=== PATIENT | female | born 1955 | race African-American/Black ===

== ENCOUNTER 2023-12-23 07:28 | Emergency (ER) | payer MEDICARE, SELFPAY ==
--- NOTE | ~2023-12-23 | XR_ITS ---
EXAMINATION: XR CHEST CLINICAL INFORMATION: Cough COMPARISON: None available. TECHNIQUE: 2 views of the chest were obtained. FINDINGS: The cardiac silhouette is normal. There is mild diffuse bronchial wall thickening. There are no areas of consolidation. There are no pleural effusions or pneumothoraces. The bones and soft tissues are unremarkable for the patient's age. XR/XR chest 2V IMPRESSION: Bronchial wall thickening may be infectious and/or inflammatory in etiology. Electronically signed by: Kizzy Sanderson MD 12/23/2023 08:52 AM [facility]
[2023-12-23 07:31] VITALS: BP 168/99; PULSE 57; RESP 20; TEMP 36.4; O2SAT 98; BMI 36.1
--- NOTE | 2023-12-23 07:59 | ED.URI ---
HPI - URI/Sore Throat General Chief Complaint: Upper Respiratory Symptoms Stated Complaint: ?sinus infection Time Seen by Provider: 12/23/23 07:57 Source: patient Mode of arrival: ambulatory Limitations: no limitations History of Present Illness ED Provider: LOU SHELTON Narrative: 68 yo female with PMH of HTN who notes she was treated for shingles about a week ago and healing. No prednisone use. She does have hx of bronchitis/pneumonia. She notes 3 days of cough, fevers, chills and yellow sputum production. No recent travel or abx use. Patient has had pneumonia in the past and feels the same. Notes increase chest tightness with coughing as well. MD elicited complaint: cough Onset (ago): day(s) (3) Consistency: constant Description of mucous: yellow Able to tolerate fluids by mouth: Yes Exacerbating factors: other (coughing) Relieving factors: nothing Associated symptoms: fever (101), chills, cough and shortness of breath Treatments prior to arrival: none Related Data Previous Rx's ?Medication ?Instructions ?Recorded cefuroxime axetil 500 mg tablet 500 mg PO BID 7 days #14 tabs 12/23/23 doxycycline hyclate 100 mg capsule 100 mg PO BID 7 days #14 caps 12/23/23 Allergies Allergy/AdvReac Type Severity Reaction Status Date / Time amoxicillin [Augmentin] Allergy Unknown Unknown Verified 12/23/23 07:34 clavulanic acid [Augmentin] Allergy Unknown Unknown Verified 12/23/23 07:34 lisinopril Allergy Unknown Unknown Verified 12/23/23 07:34 losartan Allergy Unknown Unknown Verified 12/23/23 07:34 moxifloxacin [Avelox] Allergy Unknown Unknown Verified 12/23/23 07:34 penicillin G Allergy Unknown Unknown Verified 12/23/23 07:34 Review of Systems Review of Systems: Constitutional : pos Fever, pos Chills ENT/Mouth : No Hoarseness, No sore throat, No Rhinorrhea Eyes: No Redness, No Discharge, No Vision Changes Cardiovascular : No Chest Pain, positive SOB, positive Dyspnea on Exertion, No Edema Respiratory : positive Cough, No Sputum, no Wheezing, Gastrointestinal : No Nausea, No Vomiting, No Diarrhea, No abdominal Pain Genitourinary : No Dysuria, No Hematuria Musculoskeletal : No joint pain, No Myalgias Skin : No rash Neuro : No Weakness, No Numbness, No Headache Psych : No anxiety, depression All other systems reviewed and are negative [facility] Past Medical History Attestation statement: The following information was validated with the patient. Source: old records reviewed Medical History HTN (hypertension) Social History Social History (Updated 12/23/23 @ 08:43 by Miriam Mireles DO) Patient Tobacco Use Status: Never used Tobacco Advance Directives: No Advance Directives Information Provided: Yes Physical Exam Vital Signs: Vital Signs: Last Vital Signs Temp 97.6 F 12/23/23 07:31 Pulse 57 12/23/23 07:31 Resp 20 12/23/23 07:31 BP 168/99 H 12/23/23 07:31 Pulse Ox 98 12/23/23 07:31 O2 Del Method Room Air 12/23/23 07:31 BMI result Body Mass Index 36.1 Appearance: Alert. Oriented X3. No acute distress. Eyes: Pupils equal, round and reactive to light. ENT: Pharynx normal. Neck: Normal inspection. Neck supple. CVS: Normal heart rate and rhythm. Pulses normal. Respiratory: No respiratory distress. Breath sounds right lower lobe rales noted. Abdomen: Soft and nontender. Skin: Skin warm and dry. Normal skin color. Normal skin turgor. Extremities: No lower extremity edema. No calf ttp Neuro: Oriented X 3. No motor deficit. No sensory deficit. Medications Administered Discontinued Medications Generic Name Dose Route Start Last Admin Trade Name Freq PRN Reason Stop Dose Admin Cefuroxime Axetil 500 mg 12/23/23 08:36 12/23/23 08:43 Cefuroxime Axetil 500 Mg Tablet PO 12/23/23 08:37 500 mg ONCE ONE Administration Doxycycline Monohydrate 100 mg 12/23/23 08:36 12/23/23 08:43 Doxycycline Monohydrate 100 Mg Capsule PO 12/23/23 08:37 100 mg ONCE ONE Administration Medical Decision Making Medical Decision Making MDM Narrative: 68 yo female with PMH of HTN here with c/o URI symptoms, cough, fevers and sputum production at this time will need viral panel and CXR for pneumonia - suspect pneumonia has no opacity and is not hypoxic. Plan to start on ceftin and doxy. Differential Diagnosis Differential Diagnoses: The differential diagnosis associated with the presentation includes bronchitis/pneumonia viral syndrome Admission/Observation Consideration of admission/observation: Escalation of care including admission/observation considered tolerating PO not toxic trial dose of ceftin Lab Data MDM Lab Attestation statement: I reviewed the patient's lab results. Labs: Lab Results 12/23/23 Range/Units 08:00 Influenza Type A (PCR) NEGATIVE (Negative) Influenza Type B (PCR) NEGATIVE (Negative) RSV RNA Qual (PCR) NEGATIVE (Negative) SARS-CoV-2 RNA (RT-PCR) NEGATIVE (Negative) Independent Interpretation I performed an independent interpretation of an: Plain X-Ray (right middle lobe opacity, RUL small opacity) Radiology Impression Discussion of test interpretation with radiology: I have reviewed the radiologist's reading. Prescription Management I considered prescription management with: Antibiotic Discharge Plan Discharge Clinical Impression: Pneumonia Qualifiers: Pneumonia type: due to unspecified organism Laterality: right Lung location: unspecified part of lung Qualified Code(s): J18.9 - Pneumonia, unspecified organism Patient Disposition: Home, Self-Care Instructions: Community Acquired Pneumonia (ED) Additional Instructions: return for any worsening symptoms or concerns such as you are very short of breath and you cannot walk to your own bathroom please monitor your symptoms closely On doxycycline, do not take pills immediately before going to bed and swallow pills with plenty of water. Avoid direct sunlight, iron, antacids, and Pepto Bismol. Call your provider if you develop new ringing in your ears, new problems hearing, dizziness, difficulty swallowing, rash, abdominal discomfort, nausea, or diarrhea.? On a cephalosporin?antibiotic, softer bowel movements are to be expected. Call your provider if you move your bowels more than 4 times a day, your bowel movements are almost all liquid, or you get a rash.?? Prescriptions: New doxycycline hyclate 100 mg capsule 100 mg PO BID 7 Days Qty: 14 0RF cefuroxime axetil 500 mg tablet 500 mg PO BID 7 Days Qty: 14 0RF Print Language: Upper Sorbian
[2023-12-23] MEDS: cefuroxime axetiL 500 MG TABLET PO (08:43)
[2023-12-23] MEDS: Doxycycline Monohydrate 100 MG CAPSULE PO (08:43)
[2023-12-23 08:53] LABS: Influenza A PCR NEGATIVE (Negative); Influenza B PCR NEGATIVE (Negative); Resp Syncy Virus RNA Qual PCR NEGATIVE (Negative); SARS COV2 PCR INHOUSE NEGATIVE (Negative)
[2023-12-23 09:10] VITALS: BP 138/82; PULSE 62; RESP 16; TEMP 36.5; O2SAT 99
== END 2023-12-23 09:11 | disposition home or self-care (01) ==
PROVIDERS: Emergency Provider Emergency Medicine; PCP Family Medicine
DX: J18.9 Pneumonia, unspecified organism (principal); R05.9 Cough, unspecified; R06.02 Shortness of breath; Z03.818 Encounter for observation for suspected exposure to other biological agents ruled out
CPT/HCPCS: 0241U; 71046; 99282; 99283

== ENCOUNTER 2024-01-16 11:42 | Emergency (ER) | payer MEDICARE, SELFPAY ==
--- NOTE | ~2024-01-16 | XR_ITS ---
EXAMINATION: XR CHEST CLINICAL INFORMATION: cough COMPARISON: Chest radiograph 12/23/2023. TECHNIQUE: 2 views of the chest were obtained. FINDINGS: The lungs are adequately expanded. No focal consolidation. Again noted mild bronchial wall thickening. No pleural effusions or pneumothorax. The cardiac mediastinal silhouette is within normal limits. No acute osseous abnormality. Degenerative changes of the visualized spine. XR/XR chest 2V IMPRESSION: No focal consolidation. Again noted mild bronchial wall thickening which can be seen with reactive airways disease. Electronically signed by: Hipolito Trujillo MD 01/16/2024 12:28 PM [facility]
--- NOTE | 2024-01-16 11:45 | ED.GENADULT ---
HPI - General Adult General Chief complaint: Upper Respiratory Symptoms Stated complaint: Cough, SOB Time Seen by Provider: 01/16/24 15:00 Source: patient Mode of arrival: ambulatory Limitations: no limitations History of Present Illness ED Provider: Eron Montesinos PA-C HPI narrative: 68-year-old female recently treated with pneumonia December for history of asthma bronchitis presents to the ED for past 3 4 days of coughing, body aches, chills, coughing up green phlegm, and green nasal discharge with sinus pain and headache. Related Data Previous Rx's ?Medication ?Instructions ?Recorded cefuroxime axetil 500 mg tablet 500 mg PO BID 7 days #14 tabs 12/23/23 doxycycline hyclate 100 mg capsule 100 mg PO BID 7 days #14 caps 12/23/23 cefpodoxime 200 mg tablet 200 mg PO Q12H 7 days #14 tabs 01/16/24 prednisone 20 mg tablet 40 mg (2 x 20 mg) PO DAILY 5 days 01/16/24 #10 tabs Allergies Allergy/AdvReac Type Severity Reaction Status Date / Time amoxicillin [Augmentin] Allergy Unknown Unknown Verified 01/16/24 11:47 clavulanic acid [Augmentin] Allergy Unknown Unknown Verified 01/16/24 11:47 lisinopril Allergy Unknown Unknown Verified 01/16/24 11:47 losartan Allergy Unknown Unknown Verified 01/16/24 11:47 moxifloxacin [Avelox] Allergy Unknown Unknown Verified 01/16/24 11:47 penicillin G Allergy Unknown Unknown Verified 01/16/24 11:47 Review of Systems Review of Systems: Coughing up green phlegm, sinus pain, nasal green discharge, chills Yes all other systems are reviewed and are negative PMF Past Medical History Medical History HTN (hypertension) Social History Social History (Updated 12/23/23 @ 08:43 by Miriam Mireles DO) Patient Tobacco Use Status: Never used Tobacco Advance Directives: No Advance Directives Information Provided: Yes Physical Exam ED Vital Signs: Vital Signs - 24 hr 01/16/24 11:46 01/16/24 14:33 01/16/24 15:51 Temperature 96.8 F 97.7 F 97.7 F Pulse Rate 66 64 64 Respiratory Rate 20 15 15 Blood Pressure 135/83 152/87 H 152/87 H Pulse Oximetry 96 98 98 Oxygen Delivery Method Room Air Room Air Room Air BMI result Body Mass Index 36.1 Const General: cooperative, healthy appearing, comfortable, no acute distress, well developed, alert, awake and Physically active Orientation/consciousness: patient oriented x3 [facility] Head: Yes normal to inspection, Yes No palpable skull fracture present, Yes normocephalic and Yes atraumatic Ears: hearing grossly normal bilaterally, external ears normal, TM's normal bilaterally, TM normal on the right, TM normal on the left, EAC's normal, mastoids normal and no periauricular adenopathy Face and sinus: Yes normal facial exam and Yes sinus tenderness (maxillary bilateral tenderness) Throat: Yes posterior oropharynx normal, Yes tonsils normal and Yes uvula midline Eyes General: appearance normal, both eyes and all related structures Neck Neck: Yes normal visual inspection, Yes full ROM, Yes no lymphadenopathy, Yes no meningeal signs, Yes trachea midline, Yes supple, No anterior neck swelling and No tender Chest Chest palpation & inspection: normal inspection of the chest and normal palpation of entire chest wall Resp Effort & Inspection: normal respiratory effort and able to speak in complete sentences Auscultation: clear to auscultation bilaterally Cardio Jugular venous distension: no JVD Heart sounds: S1 normal heart sound present and S2 normal heart sound present GI Inspection: Yes normal to inspection Palpation (GI): Soft to palpation, not firm, nontender, no guarding and not rigid General: Yes no CVA tenderness Back/Spine/Pelvis Back: no CVA tenderness and No back tenderness Skin General skin exam: no rashes or lesions noted, elasticity normal and turgor normal Neuro General: patient oriented x3, gait normal, tone normal, moves all extremities, Normal light touch and pain sensation, no meningeal signs, no focal motor deficits, CN's II-XI intact bilaterally and normal sensation to monofilament Extrem General: Yes normal to inspection, Yes full ROM and Yes capillary refill normal Psych Appearance: grossly normal, well kempt and not disheveled Course Course Course Narrative: RME performed by Nohemi Park PA-C. Patient is a 68 year old assigned female at presenting to the emergency department with a cough. Patient states that she was treated on 12/23/2023 for pneumonia but her cough persists and she continues to cough things up, including green sputum. Detailed physical exam and review of systems are deferred to the developmental mathematics professor. Imaging and swabs ordered. Patient placed back in the waiting room pending room availability and results. Medical Decision Making Medical Decision Making [facility] Narrative: 68-year-old female presents to ED for URI symptoms. Physical exam indicates for sinusitis bronchitis. Chest x-ray negative for pneumonia. SARs COVID influenza RSV negative. Patient will be discharged with a cephalosporin n and informed to follow up with primary care provider. Patient also requested steroids for her lungs which usually helps. Patient has albuterol inhaler at home. Patient explained worrisome signs and informed to return to the ED immediately. Not suspecting PE, pericarditis, myocarditis, CHF, carbon out tamponade, myocardial infarction, or any other life-threatening etiologies. Differential Diagnosis Differential Diagnoses: The differential diagnosis associated with the presentation includes (Sinusitis, COVID, RSV, influenza, pneumonia) Admission/Observation Consideration of admission/observation: Escalation of care including admission/observation considered Lab Data [facility] Lab Attestation statement: I reviewed the patient's lab results. Labs: Lab Results 01/16/24 Range/Units 11:54 Influenza Type A (PCR) NEGATIVE (Negative) Influenza Type B (PCR) NEGATIVE (Negative) RSV RNA Qual (PCR) NEGATIVE (Negative) SARS-CoV-2 RNA (RT-PCR) NEGATIVE (Negative) Independent Interpretation I performed an independent interpretation of an: Plain X-Ray Radiology Impression Discussion of test interpretation with radiology: I have reviewed the radiologist's reading. Independent Historian Clinical information obtained from an independent historian. History obtained from or confirmed by: Other (patient) External Record Review External record reviewed: Other (prior visits) Prescription Management I considered prescription management with: Antibiotic Discharge Plan Discharge Clinical Impression: Sinusitis, Bronchitis Patient Disposition: Home, Self-Care Instructions: Sinusitis (ED), Acute Bronchitis (ED) Additional Instructions: Chest x-ray came back negative for pneumonia. RSV, influenza, and COVID came back negative. You will being treated for sinusitis and bronchitis. Due to allergy to penicillins you will be discharged with a cephalosporin. You also discharged with prednisone that will help with your breathing. Continue using albuterol inhalers you have at home. Return to the ED immediately for any chest pain, shortness of breath, coughing up blood, worsening maxillary sinus pain, Worsening headache, dizziness, or any other concerning symptoms. Prescriptions: New cefpodoxime 200 mg tablet 200 mg PO Q12H 7 Days Qty: 14 0RF Rx Instructions: must administer with a meal/food prednisone 20 mg tablet 40 mg PO DAILY 5 Days Qty: 10 0RF No Action doxycycline hyclate 100 mg capsule 100 mg PO BID 7 Days Qty: 14 0RF cefuroxime axetil 500 mg tablet 500 mg PO BID 7 Days Qty: 14 0RF Stand Alone Forms: Work/School Release Interventions: ED Discharge Assessment Last Done: 01/16/24 15:51 Discharge Date/Time: 01/16/24 15:51 Print Language: Divehi
[2024-01-16 11:46] VITALS: BP 135/83; PULSE 66; RESP 20; TEMP 36; O2SAT 96; BMI 36.1
[2024-01-16 12:36] LABS: Influenza A PCR NEGATIVE (Negative); Influenza B PCR NEGATIVE (Negative); Resp Syncy Virus RNA Qual PCR NEGATIVE (Negative); SARS COV2 PCR INHOUSE NEGATIVE (Negative)
[2024-01-16 14:33] VITALS: BP 152/87; PULSE 64; RESP 15; TEMP 36.5; O2SAT 98
[2024-01-16 15:51] VITALS: BP 152/87; PULSE 64; RESP 15; TEMP 36.5; O2SAT 98
== END 2024-01-16 15:51 | disposition home or self-care (01) ==
PROVIDERS: Physician Assistant Medical; Emergency Provider Emergency Medicine; PCP Family Medicine
DX: J32.8 Other chronic sinusitis (principal); J40 Bronchitis, not specified as acute or chronic; R05.9 Cough, unspecified; R06.02 Shortness of breath; M79.10 Myalgia, unspecified site; R51.9 Headache, unspecified; Z03.818 Encounter for observation for suspected exposure to other biological agents ruled out
CPT/HCPCS: 0241U; 71046; 99283

== ENCOUNTER 2024-09-02 10:53 | Emergency (ER) | payer MEDICARE, SELFPAY ==
--- NOTE | ~2024-09-02 | CT_ITS ---
CLINICAL HISTORY: suprapubic LLQ pain CT abdomen and pelvis with IV contrast Comparison: None Findings: Lung bases show no active disease. No dependent layering pleural effusions. The heart is not enlarged. Coronary artery calcifications: None. Liver normal size and contour. No focal hepatic lesions. Patent hepatic and portal veins. Physiologic distention of the gallbladder with no radiopaque gallstones. Homogeneous enhancement of the pancreas. No splenomegaly. Normal adrenal glands. Symmetrical renal excretion with no segmental or diffuse renal parenchymal disease or evidence of obstructive uropathy/hydroureteronephrosis. Probable 5 mm renal cortical cysts on the left subcentimeter on the right can be confirmed with ultrasound. Normal caliber abdominal aorta. Bowel demonstrates a nonobstructive pattern. No free air. Heavy stool burden throughout. Normal appendix. Nonspecific ileitis terminal ileum. Diverticulosis coli without CT evidence of acute diverticulitis. No intraperitoneal, retroperitoneal, pelvic or inguinal masses lymphadenopathy or abnormal fluid collections. Normal distention of the urinary bladder. Probable mild cystitis correlate clinically. Post hysterectomy. No vertebral body compression fractures or spondylolisthesis. No bony destructive lesions. Impression: 1. Mild cystitis without evidence of pyonephrosis or pyelonephritis. Small probable renal cortical cysts bilaterally can be correlated with ultrasound. 2. Heavy stool burden. Normal appendix. Nonspecific ileitis terminal ileum. 3. Hepatic steatosis. No radiopaque gallstones. This document has been electronically signed by: José Eagle MD on 09/02/2024 17:41:54
[2024-09-02 10:58] VITALS: BP 139/86; PULSE 67; RESP 16; TEMP 36.6; O2SAT 94; BMI 35.1
--- NOTE | 2024-09-02 11:01 | ED_ITS ---
HPI - General Adult General Chief complaint: Urogenital-Female Stated complaint: quest kidney infection Time Seen by Provider: 09/02/24 12:08 Source: patient Mode of arrival: ambulatory Limitations: no limitations History of Present Illness ED Provider: [facility] narrative: This is a 68-year-old woman presenting to emergency department for the 2nd time with recurrent pressure in the suprapubic area, she states she was properly treated for UTI and yeast infection, she has had no dysuria, she has had no vaginal bleeding or discharge, no hematuria. She has this intermittent pressure in the suprapubic area and worse when she urinates in the does radiate into her flanks. No rashes in the area, no fevers or chills reported. Related Data Previous Rx's ?Medication ?Instructions ?Recorded cefuroxime axetil 500 mg tablet 500 mg PO BID 7 days # 14 tabs 12/23/23 doxycycline hyclate 100 mg capsule 100 mg PO BID 7 day s #14 caps 12/23/23 cefpodoxime 200 mg tablet 200 mg PO Q12H 7 days #14 ta bs 01/16/24 prednisone 20 mg tablet 40 mg (2 x 20 mg) PO DAILY 5 days 01/16/24 #10 tabs cephalexin 500 mg capsule 500 mg PO BID 7 days #14 cap s 09/02/24 Allergies Allergy/AdvReac Type Severity Reaction Status Date / Time amoxicillin (Augmentin) Allergy Unknown Unknown Verified 09/02/24 11:00 clavulanic acid (Augmentin) Allergy Unknown Unknown Verified 09/02/24 11:00 lisinopril Allergy Unknown Unknown Verified 09/02/24 11:00 losartan Allergy Unknown Unknown Verified 09/02/24 11:00 moxifloxacin (Avelox) Allergy Unknown Unknown Verified 09/02/24 11:00 penicillin G Allergy Unknown Unknown Verified 09/02/24 11:00 Review of Systems 2 Constitutional: Constitutional: Reports as per [facility] Past Medical History Medical History HTN (hypertension) Social History Social History (Updated 12/23/23 @ 08:43 by Miriam Mireles DO) Patient Tobacco Use Status: Never used Tobacco Smoked in Last 30 Days: No Use of substances other than those prescribed or required for medical reasons: No Advance Directives: No Advance Directives Information Provided: Yes Physical Exam ED Vital Signs: Vital Signs - 24 hr 09/02/24 10:58 09/02/24 14:24 Temperature 97.9 F 97.5 F Pulse Rate 67 51 Respiratory Rate 16 19 Blood Pressure 139/86 135/81 Pulse Oximetry 94 99 Oxygen Delivery Method Room Air Room Air BMI result Body Mass Index 35.1 Const Other: * Gen: ?Overall well-appearing patient * HEENT: PERRLA, EOMI, MMM, * Neck: Supple, no LAD * CV: RRR, no obvious murmurs appreciated * Resp: ?No wheezing rales rhonchi no stridor moving air well * Abd: ?Bowel sounds are present, suprapubic and left lower quadrant tenderness no rebound or rigidity, no CVA tenderness, exam deferred * MSK: FROM, strength 5/5 all extremities * Skin: Warm, dry, intact, no rashes noted * Neuro: ?Alert and oriented x3, moving upper and lower extremities symmetrically, no obvious facial asymmetry noted Course Course Course Narrative: RME, this is a rapid medical exam performed by Magdaleno Killian please refer to primary provider for complete H&P- 68 year old female presents for evaluation of lower abdominal/pelvic pain. She was reently treated for a UTI with Macrobid. Plan for labs and a UA Medications Administered Discontinued Medications Generic Name Dose Route Start Last Admin Trade Name Freq PRN Reason Stop Dose Admin Iohexol 100 ml 09/02/24 16:11 09/02/24 16:11 Iohexol 350 Mg/Ml 100 Ml Infus..Btl IV 09/02/24 16:12 85 ml ONCE ONE Administration Ketorolac Tromethamine 15 mg 09/02/24 14:53 09/02/24 15:57 Ketorolac Tromethamine 15 Mg/Ml Vial IVPUSH 09/02/24 14:54 15 mg ONCE ONE Administration Medical Decision Making Medical Decision Making MDM Narrative: Considerations for workup as below, we will obtain imaging, depending on what the imaging shows we will augment further treatment. Differential Diagnosis Differential Diagnoses: The differential diagnosis associated with the presentation includes Diverticulitis, appendicitis, renal colic, pyelonephritis, UTI, AAA Admission/Observation 2022 Emergency Medicine Coding Guide from [employer] on 09/02/2024 All calculations should be rechecked by clinician prior to use RESULT SUMMARY: 4 Estimated Level of Service Problems: Moderate (4) Risk: Moderate (4) Data: Limited (3) NARRATIVE MDM: This patient's problem complexity is Moderate as patient: has an acute illness with systemic symptoms. This patient's risk is Moderate due to: overall presentation requiring evaluation for a potentially Moderate-risk process. This patient's data complexity is Limited due to: -multiple tests ordered INPUTS: Number and Complexity ?> 6 = 4: acute illness w/systemic sx (f) Risk level ?> 3 = Moderate Tests ordered ?> 2 = 2 Tests results reviewed (excluding labs) ?> 0 = 0 Prior external notes reviewed ?> 0 = 0 Assessment requiring and independent historian ?> 0 = No Independent interpretation of tests ?> 0 = No Discussed management/test interpretation w/external professional ?> 0 = No Lab Data [facility] Lab Attestation statement: I reviewed the patient's lab results. 09/02/24 11:13 09/02/24 11:13 Labs: Lab Results 09/02/24 Range/Units 11:13 WBC 3.5 L (4.8-10.8) X10*3/uL RBC 4.33 (4.20-5.50) X10*6/uL Hgb 13.2 (12.0-16.0) g/dl Hct 37.6 (37.0-47.0) % MCV 86.8 (80.0-98.0) fL MCH 30.5 (27.0-33.0) pg MCHC 35.1 H (31.0-35.0) g/dl RDW 13.9 (11.0-16.0) % Plt Count 243 (160-400) X10*3/uL MPV 10.6 (9.4-12.3) fL Immature Gran % (Auto) 0.3 (0.0-0.4) % Neut % (Auto) 48.7 (45-73) % Lymph % (Auto) 40.2 H (20-40) % Edgar % (Auto) 8.8 (2-11) % Eos % (Auto) 1.4 (0-4) % Baso % (Auto) 0.6 (0-2) % Lymph # (Auto) 1.4 (1.2-4.9) X10*3/uL Edgar # (Auto) 0.3 (0.1-1.2) X10*3/uL Eos # (Auto) 0.1 (0.0-0.4) X10*3/uL Baso # (Auto) 0.0 (0.0-0.2) X10*3/uL Abs Immat Gran (auto) 0.01 (0.00-0.03) X10*3/uL Absolute Neuts (auto) 1.7 L (2.0-8.3) x10*3/uL Absolute Nucleated RBC 0.000 (0.0-0.012) X10*3/uL Nucleated RBC % (auto) 0.0 (0.0-0.2) /100WBC Sodium 141 (135-145) mmol/L Potassium 3.5 (3.3-5.1) mmol/L Chloride 109 H (96-108) mmol/L Carbon Dioxide 25 (22-29) mmol/L Anion Gap 11 L (12-20) BUN 16 (9-16) mg/dL Creatinine 0.70 (0.5-1.4) mg/dL Estim Creat Clear Calc 88.0 Estimated GFR > 60 Random Glucose 95 (60-115) mg/dL Calcium 8.8 (8.4-10.2) mg/dL Total Bilirubin 0.5 (0.0-1.0) mg/dL AST 16 (5-31) U/L ALT 14 (0-31) U/L Alkaline Phosphatase 85 (39-117) U/L Total Protein 6.9 (6.5-8.0) g/dL Albumin 3.9 (3.5-5.0) g/dL Urine Color Yellow Urine Appearance Cloudy Urine pH 8.0 (5.0-9.0) Ur Specific [place] 1.020 (1.005-1.025) Urine Protein Trace (Neg-Trace) mg/dL Urine Glucose (UA) Negative (Negative) mg/dL Urine Ketones Negative (Negative) mg/dL Urine Blood Negative (Negative) Urine Nitrite Negative (Negative) Ur Leukocyte Esterase Small (1+) H (Negative) Urine RBC 0-2 (0-2) /HPF Urine WBC 6-10 H (0-5) /HPF Ur Squamous Epith Cells >20 (0-2) /HPF Urine Bacteria 4+ (None Seen) Hyaline Casts 0-2 (0-2) /LPF Radiology Impression Discussion of test interpretation with radiology: I have reviewed the radiologist's reading. (Impression: 1. Mild cystitis without evidence of pyonephrosis or pyelonephritis. Small probable renal cortical cysts bilaterally can be correlated with ultrasound. 2. Heavy stool burden. Normal appendix. Nonspecific ileitis terminal ileum. 3. Hepatic steatosis. No radiopaque gallstones.) Discharge Plan Discharge Clinical Impression: Urinary tract infection Patient Disposition: Home, Self-Care Additional Instructions: Cat scan reveals cystitis, your urinalysis supports that, the rest of the workup has been reassuring Prescriptions: New cephalexin 500 mg capsule 500 mg PO BID 7 Days Qty: 14 0RF No Action doxycycline hyclate 100 mg capsule 100 mg PO BID 7 Days Qty: 14 0RF cefuroxime axetil 500 mg tablet 500 mg PO BID 7 Days Qty: 14 0RF cefpodoxime 200 mg tablet 200 mg PO Q12H 7 Days Qty: 14 0RF Rx Instructions: must administer with a meal/food prednisone 20 mg tablet 40 mg PO DAILY 5 Days Qty: 10 0RF Referrals: Anastasia Corrigan MD [Primary Care Provider, Family Practice] - 2 weeks Clinical Impression: Urinary tract infection Print Language: [place]
[2024-09-02 11:20] LABS: MANUAL DIFF FLAG NO
[2024-09-02 11:21] LABS: Appearance Urine Cloudy; Glucose Urine UA Negative (Negative); PH 8.0 (5.0-9.0); Specific Gravity - Urine 1.020 (1.005-1.025); UMIC TRIGGER UACC YES
[2024-09-02 11:24] LABS: UACC Culture Trigger YES
[2024-09-02 11:37] LABS: Alanine Aminotransferase 14 U/L (0-31); Albumin Level 3.9 g/dL (3.5-5.0); Alkaline Phosphatase 85 U/L (39-117); Anion Gap 11 (12-20); Aspartate Amino Transferase 16 U/L (5-31); Blood Urea Nitrogen 16 mg/dL (9-16); Calcium 8.8 mg/dL (8.4-10.2); Carbon Dioxide 25 mmol/L (22-29); Chloride 109 mmol/L (96-108); Creatinine Clr Calc Pharmacy 88.0; Estimated Glomerular Filt Rate > 60; Imm Gran Abs Auto 0.01 X10*3/uL (0.00-0.03); Imm Gran Pct Auto 0.3 % (0.0-0.4); Mean Corpuscular HGB Conc 35.1 g/dl (31.0-35.0); NRBC Abs Auto 0.000 X10*3/uL (0.0-0.012); NRBC Pct Auto 0.0 /100WBC (0.0-0.2); PLT CLUMP 1; Potassium 3.5 mmol/L (3.3-5.1); SCAN SMEAR FLAG 1; Sodium 141 mmol/L (135-145); Total Protein 6.9 g/dL (6.5-8.0)
[2024-09-02 11:39] LABS: Hematocrit 37.6 % (37.0-47.0); Hemoglobin 13.2 g/dl (12.0-16.0); Lymphocytes Absolute Auto 1.4 X10*3/uL (1.2-4.9); Mean Corpuscular Hemoglobin 30.5 pg (27.0-33.0); Mean Corpuscular Volume 86.8 fL (80.0-98.0); Red Blood Count 4.33 X10*6/uL (4.20-5.50)
[2024-09-02 11:44] LABS: White Blood Count 3.5 X10*3/uL (4.8-10.8)
[2024-09-02 11:45] LABS: Platelet Count 243 X10*3/uL (160-400)
[2024-09-02 14:24] VITALS: BP 135/81; PULSE 51; RESP 19; TEMP 36.4; O2SAT 99
--- NOTE | 2024-09-02 15:10 | PC.NURSE ---
RUE IV no longer flushing, unable to administer toradol. MD aware, pending new USIV placement for medication and CT. Pt resting comfortably in bed, care ongoing.
[2024-09-02] MEDS: iohexoL 350 MG/ML 100 ML INFUS..BTL IV (16:11)
[2024-09-02 18:04] VITALS: BP 135/81; PULSE 51; RESP 19; TEMP 36.4; O2SAT 99
== END 2024-09-02 18:06 | disposition home or self-care (01) ==
PROVIDERS: Physician Assistant; Emergency Provider Emergency Medicine; PCP Family Medicine
DX: N39.0 Urinary tract infection, site not specified (principal); R10.30 Lower abdominal pain, unspecified; I10 Essential (primary) hypertension; Z79.899 Other long term (current) drug therapy
CPT/HCPCS: 36415; 74177; 80053; 81001; 85025; 87086; 96374; 99284; J1885; Q9967

== ENCOUNTER → 2024-09-02 12:31 | Outpatient (BNV) | payer MEDICARE, SELFPAY | PROVIDERS: Emergency Provider Emergency Medicine; PCP Family Medicine; Visit Provider Radiology Diagnostic Radiology | DX: K56.41 Fecal impaction (principal); K76.0 Fatty (change of) liver, not elsewhere classified | CPT/HCPCS: 74177 ==

== ENCOUNTER 2024-12-05 08:04 | Emergency (ER) | payer MEDICARE, SELFPAY ==
--- OUTSIDE RECORDS SUMMARY | 2024-12-05 10:09 | XMS_ITS | Clinical Summary ---
Author Organization [facility] Address [address] [place], [place] [id number] Phone Care Team Providers Care Tape Machine Tailer Name Role Phone Unknown, Unknown Primary Care Provider Dagoberto baker Allergies Active Allergy Reactions Criticality Noted Date Comments Amoxicillin-Pot Clavulanate 09/06/19 24 Metronidazole 09/06/2023 Penicillins 09/06/2023 Tetracycline 09/06/2023 Medications FLOVENT HFA 110 mcg/actuation inhaler Inhale into the lungs 2 (two) times a day. 4 Active levothyroxine (SYNTHROID, LEVOTHROID) 75 MCG tablet Take 1 tablet by mouth every morning. 4 Active metoprolol tartrate (LOPRESSOR) 25 MG tablet Take 0.5 tablets by mouth 2 (two) times a day. 4 Active OZEMPIC 0.25 mg or 0.5 mg (2 mg/3 mL) subcutaneous injection pen Inject under the skin every 7 days. 4 Active cholecalciferol 25 MCG (1,000 unit) tablet Take 25 mcg by mouth. 4 Active LORazepam (ATIVAN) 1 MG tablet Take 1 mg by mouth daily as needed. Active magnesium gluconate 12.5 mg magne- sium (250 mg) Tab Take 250 mg by mouth. 4 Active hydroCHLOROthiazi de 25 MG tablet Take 25 mg by mouth daily. Active Active Problems Problem Noted Date Diagnosed Date Primary osteoarthritis of left knee 09/23/2023 Assessment & Plan (09/23/2023 9:39 AM EDT): Osteoarthritis of the left knee currently stable with no warmth or effusion. She does not require an injection today. She can safely take Tylenol 650 mg as needed. Subacromial bursitis of left shoulder joint 09/2023 Assessment & Plan (09/23/2023 9:40 AM EDT): Left subacromial bursitis secondary to her workout regimen. Advised her to stretch before she exercises. She should try using topical Salonpas with lidocaine available in a roll-on applicator. Social History Tobacco Use Types Packs/Day Years Used Date Smoking Tobacco: Never Smokeless Tobacco: Never Tobacco Cessation:Counseling Given: Not Answered Alcohol Use Standard Drinks/Week Comments Never 0 (1 standard drink = 0.6 oz pur e alcohol) Education Answer Date Recorded Are you interested in more education? Not on velvet e 06/20/2022 Are you concerned about learning? Not on file 06/20/2022 No 06/20/2022 No 06/20/2022 Digital Access Answer Date Recorded No 07/12/2022 No 07/12/2022 Reliable internet access at home? Not on file 07/12/2022 Device with a working camera? Not on file Comments Unknown Sex and Gender Information Value Date Recorded Sex Assigned at Female 01/23/2019 10:03 AM EST Legal Sex Female 5:49 PM EST Gender Identity Female 01/23/2019 10:03 AM EST Sexual Orientation Straight 01/23/2019 10 :03 AM EST Last Filed Vital Signs Vital Sign Reading Time Taken Comments Blood Pressure 122/82 09/23/2023 8:52 AM EDT Pulse 65 09/23/2023 8:52 AM EDT Temperature - - Respiratory Rate - - Oxygen Saturation 98% 09/23/2023 8:52 AM EDT Inhaled Oxygen Concentration - - Weight 98.4 kg (217 lb) 09/23/2023 8:52 AM EDT Height 165.1 cm (5' 5 ) 09/23/2023 8:52 AM EDT Body Mass Index 36.11 09/23/2023 8:52 AM EDT Plan of Treatment Health Maintenance Due Date Last Done Comments Adult Td,Tdap Booster 1955 LIPID PANEL 1955 POTASSIUM LEVEL 1955 TSH LEVEL 1955 DEPRESSION SCREENING 1967 HEPATITIS C SCREENING 10/05/1973 SCREENING FOR DIABETES 10/05/1990 MAMMOGRAM 1995 COLOGUARD 10/05/2000 COLONOSCOPY 10/05/2000 COLORECTAL CANCER SCREENING 10/05/2000 FIT TEST 10/05/2000 FOBT 10/05/2000 SIGMOIDOSCOPY 10/05/2000 VIRTUAL COLONOSCOPY 10/05/2000 PNEUMOCOCCAL VACCINES (50+ years) (2 of 2 - PCV) 10/05/2005 03/02/2003 ZOSTER VACCINES (1 of 2) 10/05/2005 OSTEOPOROSIS SCREENING INITI AL (ONE-TIME) 10/05/2020 INFLUENZA VACCINE (#1) 2024 03/18/2018 COVID-19 VACCINE (3 - 2024-2 6 season) 2024 07/06/2020, 05/08/2020 RSV VACCINE (1 - 1-dose 75+ series) 10/05/2030 SMOKING STATUS SCREENING (On ce After 26 Yrs) Completed 09/23/2023 HEPATITIS A VACCINES Aged Out No long er eligible based on patient's age to complete this topic HIB VACCINES Aged Out No longer eligi ble based on patient's age to complete this topic MENINGOCOCCAL VACCINES (ACWY) Aged Out No longer eligible based on patient's age to complete this topic MENINGOCOCCAL VACCINES (B) Aged Out N o longer eligible based on patient's age to complete this topic Medical Devices Not on file Insurance [place] [id number] [facility] MEDICARE REPLACEMENT [place] [address] [place] [address] MEDICARE REPLACEMENT Care Teams Tape Machine Tailer Relationship Specialty Start Date End Date Unknown, Unknown, PCP - General 01/23/19 Additional Source Comments The information contained in this document represents components of the legal health record. It is not the complete legal health record.[facility]
--- OUTSIDE RECORDS SUMMARY | 2024-12-05 10:09 | XMS_ITS | Data Portability ---
Author Organization [place] [facility] Address [address] [place] [address] Care Team Providers Care Facilities Custodian Name Role Phone TASHA JUÁREZ Primary Care Provider Assessment Encounter Date Assessment Date Assessment LastModified by Organization Details LastModified Time 04/02/2021 04/02/2021 Overview/History : 65 YO F new to [facility] and new to provider She is being seen today for ? sinus infx. Sx started last (6 days prior) Had COVID in January/February . Got better. Now she is having sinus pressure and coughing up some green phlegm. She is sneezing. Hx of sinus infx in past, feels similar. She has had no fever, SOB, or asthma exacerbation. She has been using her inhaler w/o much relief for her cough. She has used Tylenol for fever w/ good effect and she has used Azelastine spray w/o much effectiveness. She denies any wheezing, fever, tooth pain, loss of taste or smell, abd pain, N/V/D, issues using the bathroom, numbness/tinglin g, changes to her vision. No other c/o's or sx's today. Exam: Vitals: VSS and afebrile Constitutional:[age] yo Well developed, well nourished, pleasant patient in no apparent distress. She is sitting upright comfortably on he couch. She is nontoxic appearing. Eyes: PERRL at 4mm, EOM's intact, corrective lesnes, No swelling, no discharge, sclera / conjunctiva clear ENT: BL inflamed turbinates, clear nasal discharge, Uvula midline, no kissing tonsils, no erythema/ exudate noted in oropharynx, moist mucous membranes CV: Normal HR, reg rhythm, no rubs/ murmurs/ gallops heard, 2+ radial pulses bilaterally, no edema and no calf tenderness BL Pulm: breath sounds clear and equal bilaterally, no wheeze/ rhonchi or rales on auscultation. Speaks in full sentences, no increased work of breathing. GI: Soft, non-tender to palpation. No masses, normal bowel sounds. MS: Self ambulatory patient, moves all limbs without deficit, no evidence of trauma Neuro: No focal deficits, CN s II-XII grossly normal, A&O x4 Skin: No rash and no cyanosis or pallor noted to visible skin Psych: Calm, cooperative, non-manic. Pleasant. DDx considered, but not limited to: COVID 19 - unlikely as covid recovered, neg home test earlier today and neg rapid today. Fully Vax Flu - unlikely as no classix sx's of fever, chills, bodyaches Sinus infx (bacterial vs viral) - ML viral given sinus pressure, nasal congestion, green phlegm, and sinus tenderness on exam. Given timeline day 6 most likely viral Asthma Exacerbation - no wheezes, stable o2 sat, and no resp distress. no exacerbation at this time Pna - lungs CTAB, stable O2 sat, no fever, cough w/o rust colored sputum. Unlikely no need ot image at this time Work up/Results: Rapid COVID - COVID PCR pend Plan/Discussion: Viral Sinusitis: -ML diagnosis see above -Pt w/ coughing and good effect of tessalon perles, prescribe these for relief -CONT OTC meds ie antihistamines, steam, Tylenol, and nasal sprays for addn sx relief -Doxycycline sent to pharmacy and can turkey picker and start on day 10 of sx's if they persist, i expect recovery before this -Doxy sent as pt w/ angioedema rx to N in past ( she has taken doxy before w/o issue) -Pt is well appearing, stable lung exam, VSS, and afebrile -No change to vision and EOMI -F/u if any change in sx's -F/u emergently w/ any neuro sx's, change to vision, sever headache, weakness, lethargy, worsening cough, resp distress, wheezing, fever >102 Pt is on agreement and verbalizes understanding with the above plans at this time. Pt has no other questions or concerns at this time. All questiosn are answered to the best of my ability. Pt thanks us for our visit today. In order to obtain further information and compare any laboratory results/values, I have accessed patient records on the [place] [employer]. This information was pertinent in my medical decision making today. [email or web address] Not available 04/02/2021 17:50:11 Plan of Treatment Reminders Order Date Submit Date Provider Last Modified By Organization Details Last Modified Time Details Appointments None recorded. Lab unlisted lab - covid-19 (novel coronavirus ) PCR 2021 SHERMAN [facility] (Centralized Electronic Ordering - All Locations), Patient Can Go To The Location Of Their Choice, [id number] 10:44:18 rapid SARS CoV 2 Ag, QL IA, respiratory specimen 2021 [email or web address] [facility], [address] [place] [address], [id number], 18:04:27 Referral None recorded. Procedures None recorded. Surgeries None recorded. Imaging None recorded. Medication Orders benzonatate 200 mg capsule 2021 SHERMAN Not available 17:27:52 doxycycline hyclate 100 mg tablet 2021 elevick Not available 00:27:00 Patient TargetsNo targets recorded. Patient InstructionsNo instructions recorded. Reason for Referral None Reported. Results Created Date Observation Date Name Description Value Unit Range Abnormal Flag Note LastModifiedBy Organization Detail LastModifiedTime 04/02/19 22 04/05/2021 COVID -19 (NOVE L CORON AVIRU S) PCR covid-19 PCR result (neg) NEGAT CONSTANCE 2019- novel Coron aviru s (2019 -nCoV ) not detec jsoe by the qRT-P CR assay . If clini eden suspi cion for COVID -19 is high, kenyatta nue to maint ain preca ution s and consi jeana repea t testi ng. Resul t repor jose to the [facility]. This test has been autho rized by the FDA under an Emerg ency Use Autho rizat ion (EUA) for use by autho rized labor atori es. Test perfo rmed by Clini eden [facility] at the [facility] and José Miguel mckee, [address] [place] [address] . CLIA ID: [id number] , CAP: [id number]. Medic al Direc tor: Kelsy Gipson, PhD FAC[facility] (NOTE ) The CRSP SARS- CoV-2 Real- time Rever se Trans cript ase (RT)- PCR Diagn ostic Assay is a real- time RT-PC R test inten ded for the quali tativ e detec tion of nucle ic acid from the SARS- CoV-2 in nasop haryn geal and oroph aryng eal swabs colle cted from indiv idual s who may have contr acted the virus . Testi ng is limit ed to the [facility] emmett Alissa or at the [facility] which is certi fied under the Clini eden Labor atory Impro vemen t Amend ments of 1987 (CLIA ), 42 U.S.C . ?263a , to perfo rm high compl exity tests . = Posit constance resul ts are indic ative of activ e infec tion with SARS- CoV-2 but do not rule out bacte rial infec tion or co-in fecti on with other virus es. The agent detec jose may not be the defin ite cause of disea se. In addit ion, nucle ic acid detec tion can persi st follo wing clear ance of activ e viral repli catio n. Labor atori es withi n the Unite d State s and its tereso little s are requi red to repor t all posit constance resul ts to the appro priat e publi c healt h autho ritie s. = Negat constance resul ts do not precl ude SARS- CoV-2 infec tion and shoul d not be used as the sole basis for patie nt treat ment or other patie nt manag ement decis ions. Negat constance resul ts must be combi abimbola with clini eden obser vatio ns, patie nt histo ry, and epide miolo gical infor tang n. Not Available [facility] (Centralized Electronic Ordering - All Locations) Patient Can Go To The Location Of Their Choice, [id number] 04/05/2021 10:44:18 04/02/19 22 04/02/2021 rapid SARS CoV 2 Ag, QL IA, respi rator y speci men Covid-19 (ref: neg) negati ve Not Available [facility] - Home [address] [place], [address], 04/02/2021 18:04:00 04/02/19 22 04/02/2021 rapid SARS CoV 2 Ag, QL IA, respi rator y speci men Control Visual ized/V alid Not Available [facility] [address] [place], [address], 04/02/2021 18:04:00 04/02/19 22 04/02/2021 rapid SARS CoV 2 Ag, QL IA, respi rator y speci men Location [facility], [address] [place] [address], [id number] Not Available [facility] - Home [address] [place], [address], 04/02/2021 18:04:00 Result Notes None recorded. Procedures Surgical History Date Name Laterality Status Provider Name and Address Organization Details Recorded Time hysterectomy completed MARÍA Thomas [address] [place], [address], [place] [facility] 04/02/2021 17:08:51 Imaging Results None recorded. Procedure Notes None recorded. Medical Equipment None Reported. Allergies Allergen ID Allergen Name Allergen Category Reaction Reaction Severity Criticality Documentation Date Start Date Code Code System Note Provider Name and Address Organization Details Recorded Time [id number] Augmentin medicatio n Not available Not available Not available 04/02/2021 57140 2 RxNorm MARÍA Moseley [address] [place], [address], [place] [facility] 17:06:31 [id number] Product containin g penicilli n (product) medicatio n Not available Not available Not available 04/02/2021 [id number] SNMARÍA Daly [address] [place], [address], [place] [facility] 17:06:40 Medications Name Sig Start Date Stop Date Status Note LastModified by Organization Details LastModified Time prednison e 10 mg tablet active Not Available Not Available Not Available doxycycli ne hyclate 100 mg capsule TAKE 1 CAPSULE BY MOUTH TWICE DAILY FOR 7 DAYS FOR INFECTIO N active Not Available Not Available No t Available clindamyc in HCl 300 mg capsule TAKE 1 CAPSULE BY MOUTH THREE TIMES DAILY active Not Available Not Available No t Available azithromy kris 250 mg tablet active Not Available Not Available No t Available benzonata te 200 mg capsule TAKE 1 CAPSULE BY MOUTH THREE TIMES DAILY FOR 7 DAYS NEEDED active Not Available Not Available No t Available topiramat e 25 mg tablet active Not Available Not Available Not Available acetamino phen 300 mg-codein e 30 mg tablet TAKE 1 TABLET BY MOUTH EVERY 6 HOURS NEEDED FOR PAIN active Not Available Not Available No t Available sulfameth oxazole 800 mg-trimet hoprim 160 mg tablet 04/02 completed Not Available Not Available Not Available aspirin 81 mg tablet,de layed release TAKE 1 TABLET BY MOUTH DAILY active Not Available Not Available No t Available doxycycli ne monohydra te 100 mg tablet TAKE 1 TABLET BY MOUTH TWICE DAILY 04/02 completed Not Available Not Available Not Available levothyro xine 75 mcg tablet TAKE 1 TABLET BY MOUTH DAILY active Not Available Not Available No t Available oxycodone -acetamin ophen 5 mg-325 mg tablet TAKE 1 TABLET BY MOUTH EVERY 6 HOURS NEEDED FOR PAIN active Not Available Not Available No t Available hyoscyami ne sulfate 0.125 mg tablet TAKE 1 TABLET BY MOUTH THREE TIMES DAILY active Not Available Not Available No t Available esomepraz ole magnesium 40 mg capsule,d elayed release TAKE 1 CAPSULE BY MOUTH EVERY MORNING BEFORE BREAKFAS T active Not Available Not Available No t Available sertralin e 25 mg tablet active Not Available Not Available Not Available hydroxyzi ne HCl 25 mg tablet active Not Available Not Available No t Available hydrochlo rothiazid e 25 mg tablet TAKE 1 TABLET BY MOUTH EVERY DAY active Not Available Not Available No t Available lorazepam 1 mg tablet TAKE 1 TABLET BY MOUTH NEEDED active Not Available Not Available No t Available azelastin e 137 mcg (0.1 %) nasal spray SPRAY TWICE IN EACH NOSTRIL TWICE DAILY active Not Available Not Available No t Available ibuprofen 600 mg tablet TAKE 1 TABLET BY MOUTH EVERY 6 HOURS NEEDED FOR MODERATE PAIN. MAX OF 2400MG A DAY active Not Available Not Available No t Available methylpre dnisolone 4 mg tablets in a dose pack FOLLOW PACKAGE DIRECTIO NS 04/02 completed Not Available Not Available Not Available albuterol sulfate HFA 90 mcg/actua tion aerosol inhaler active Not Available Not Available Not Available doxycycli ne hyclate 100 mg tablet Take 1 tablet twice a day by oral route as directed for 7 days. 2023 active [employer] can fill this starting on 04/06 if she is still having symptoms of sinus infectio n. Not Available Not Available Not Available dicyclomi ne 10 mg capsule TAKE 1 CAPSULE BY MOUTH THREE TIMES DAILY active Not Available Not Available No t Available loratadin e 10 mg tablet TAKE 1 TABLET BY MOUTH DAILY active Not Available Not Available No t Available cyclobenz aprine 5 mg tablet TAKE 1 TABLET BY MOUTH THREE TIMES DAILY NEEDED FOR MUSCLE SPASM active Not Available Not Available No t Available metoprolo l tartrate 25 mg tablet TAKE 1/2 TABLET BY MOUTH TWICE DAILY active Not Available Not Available No t Available topiramat e 50 mg tablet active Not Available Not Available Not Available peg 3350-elec trolytes 236 gram-22.7 4 gram-6.74 gram-5.86 gram solution active Not Available Not Available Not Available Virtussin AC 10 mg-100 mg/5 mL oral liquid TAKE 5 ML BY MOUTH EVERY 6 TO 8 HOURS NEEDED FOR COUGH active Not Available Not Available No t Available COVID-19 test specimen collectio n TEST DIRECTED active Not Available Not Available No t Available BinaxNOW COVID-19 Ag Self Test kit FOLLOW PACKAGE DIRECTIO NS active Not Available Not Available No t Available Paxlovid 300 mg (150 mg x 2)-100 mg tablets in a dose pack TAKE 3 TABLETS BY MOUTH TWICE DAILY FOR 5 DAYS active Not Available Not Available No t Available Vitals Date Recorded Body temperature Heart rate Respiratory rate Oxygen saturation Oxygen saturation in Arterial blood by Pulse oximetry Systolic And Diastolic Provider Name and Address Organization Details Last Updated DateTime 2 98.4 [degF] 77 /min 18 /min 99 % 99 % 138/84 mm[Hg] Not Available [facility] 17:07:53 Social History Question Answer Notes LastModified by [employer] Details LastModified Time Tobacco Smoking Status Never Smoker MARÍA Thomas [address], [place], [address], [place] [facility] 04/02/2021 17:08:40 Has The Patient Seen Their PCP In The Past 6 Months? Yes [email or web address] Information not available 05/17/2022 Sex: Unknown Functional Status Question Answer Note LastModified by [employer] Details LastModified Time Do you use any illicit or recreational drugs? No Information not available 04/02/2021 Do you or have you ever used any other forms of tobacco or nicotine? No Information not available 04/02/2021 What is your level of alcohol consumption? None Information not available 04/02/2021 Mental Status None recorded. Family History Relationship Description Onset Age of this Age Resolved Age Notes LastModified by Organization Details LastModified Time Mother Malignant neoplasm of kidney crumplik Not available 2021 17:07:52 Mother Chronic obstructive pulmonary disease crumplik Not available 2021 17:07:59 Medical History Condition Response Diabetes N Coronary Artery Disease N CHF N Parkinson's Disease N Cancer N Dementia N Stroke N Depression N Asthma Y COPD N Hypothyroidism Y High Cholesterol N Rheumatoid Arthritis N Pulmonary Embolism N Hypertension Y A-fib N Osteoporosis N Kidney Disease N Gynecological HistoryNo gynecological history recorded. Obstetrics History GPAL:G 0 P 0 0 0 0 Immunizations Vaccine Type Date Status Note Provider Nam e and Address Organization Details Recorded Time SARS-COV-2 (COVID-19) vaccine, UNSPECIFIED 2 completed MARÍA Thomas [address], [place], [address], [place] [facility] 04/02/2021 17:07:35 Past Encounters Encounter ID Performer Location Encounter Start Date Encounter Closed Date Diagnosis/Indication Diagnosis SNOMED-CT Code Diagnosis ICD10 Code Diagnosis IMO Codes Diagnosis Note [id number] MARÍA Kelly [facility] [address] [place] [address] 04/02/2021 16:29:49 04/03/2021 16:44:55 Acute sinusitis 23478092 J01.90 Cough 54347897 R05.1 Health Concerns Section Related Observation LastModified by Organization Detai ls LastModified Time None Recorded Concern Status LastModified by Organization Details LastModified Time None Recorded Advance Directives Directive None Recorded Payers Insurance Date Sequence Insurance Name Policy Number Policy Becker Covered Member ID Becker Member ID Guarantor Name 04/03/2021 1 [employer] - MEDICARE ADVANTAGE PLAN (MEDICARE REPLACEMENT HMO) Emily Espinosa [id number] Emily Espinosa 04/02/2021 1 *SELF PAY* Emily Espinosa [id number] Emily Espinosa 04/03/2021 1 [facility] (MEDICARE REPLACEMENT/AD VANTAGE - HMO) [id number] Emily Espinosa [id number] Emily Espinosa Notes Date Note Type Note Provider Name and Address Organization Details Recorded Time 04/02/2021 text/html 65 YO F new to DH and new to providerShe is being seen today for ? sinus infx. Sx started last (6 days prior)Had COVID in . Got better. Now she is having sinus pressure and coughing up some green phlegm. She is sneezing. Hx of sinus infx in past, feels similar. She has had no fever, SOB, or asthma exacerbation. She has been using her inhaler w/o much relief for her cough. She has used Tylenol for fever w/ good effect and she has used Azelastine spray w/o much effectiveness. She denies any wheezing, fever, tooth pain, loss of taste or smell, abd pain, N/V/D, issues using the bathroom, numbness/tingling , changes to her vision. No other c/o's or sx's today. MARÍA Thomas [address] [place], [address], [place] [facility] 04/02/2021 18:05:19 OBGyn Episode No OBEpisode recorded.
--- OUTSIDE RECORDS SUMMARY | 2024-12-05 10:09 | XMS_ITS | Data Portability ---
Author Organization [place] - [facility],, CARMELITA TORO MD Address [address] [address] Care Team Providers Care Manager Sign Name Role Phone TASHA JUÁREZ Referring Provider Assessment No assessment recorded. Plan of Treatment Reminders Order Date Submit Date Provider Last Modified By Organization Details Last Modified Time Details Appointments None recorded. Lab pap, LB, vaginal 2018 019 [facility], Cytopathology Service, [address] [place], [address], 9 13:45:39 fecal occult blood, stool 2018 019 [email or web address] In-Office Order, Internal Use Only DO Not Attach Compendium DO Not Attach Compendium, Do Not Delete/merge, [id number] 07:35:24 wet mount, vaginal 2016 017 [email or web address] 1 In-Office Order, Internal Use Only DO Not Attach Compendium DO Not Attach Compendium, Do Not Delete/merge, [id number] 7 13:24:50 pap, LB, vaginal 2015 016 [facility], Cytopathology Service, [address] [place], [address], 6 10:30:18 fecal occult blood, stool 2015 016 [email or web address] 1 In-Office Order, Internal Use Only DO Not Attach Compendium DO Not Attach Compendium, Do Not Delete/merge, [id number] 6 14:21:30 wet mount, vaginal 2014 015 [email or web address] 1 In-Office Order, Internal Use Only DO Not Attach Compendium DO Not Attach Compendium, Do Not Delete/merge, [id number] 5 15:47:24 Referral None recorded. Procedures None recorded. Surgeries None recorded. Imaging MAMMO, screening , digital, bilateral 2018 019 [facility], [address], [place], [address], 9 17:05:38 MAMMO, screening , digital, bilateral 2015 016 [facility] ([facility] Scheduling Radiology), [address], [place], [address], 6 14:19:20 Medication Orders estradiol 0.01% (0.1 mg/gram) vaginal cream 2018 019 INTERFACE Not available 9 14:55:10 Gynazole- 1 2 % vaginal cream 2016 017 [email or web address] Not available 9 14:38:47 nystatin 100,000 unit/gram topical powder 2016 017 [email or web address] Not available 9 14:36:57 nystatin 100,000 unit/gram topical powder 2015 016 [email or web address] Not available 9 14:36:57 fluconazo le 150 mg tablet 2014 015 [email or web address] Not available 6 13:53:48 nystatin 100,000 unit/gram topical powder 2014 015 [email or web address] Not available 9 14:36:57 estradiol 0.5 mg tablet 2014 015 [email or web address] Not available 5 15:30:42 Patient TargetsNo targets recorded. Patient Instructions Encounter Date Encounter Id Patient Instructions Last Modified By Organization Details Last Modified Time 05/11/2014 [id number] She is here kaykay use she had a small vulvar abscess on 04/13/14, used Epsom salts and feels it is resolved now but would like it rechecked. Also she tried the estradiol 1 mg a day and felt it was too strong for her, would like to restart on a lower dosage in order to help her insomnia. she is allergic to peanuts, has had a hysterectomy. The medicine was helping for the anxiety and she was sleeping better however so she would like to continue it at a lower dosage. The infected boil is resolved now on exam. After discussion she has decided to get an rx for 0.5 mg estradiol and then cut in half and take one half a day for two weeks to see if it resolves her symptoms and does not cause side defects of tiredness . She may go up to 0.5 mg a day at her discretion. We discussed having her begin to take hormone replacement therapy. We discussed the need to take a progestin if a uterus is present, and the rationale behind that. We discussed the stated risks of one in 10,000 of development o fa blood clot/DVT/PE tht could be life threatening. We discussed the Women's Health Initive study and the findings. We discused the PEPPI study as well. She is aware that there are conflicting reports in the medical literature concerning the risks and benefits of HRT. We disussed that women are advised by ACOG to take HRT in the lowest dose necessary, and for the shortest time necessary, to control their symptoms. After a long discussion of the potential risks and benefits of HRT she elects to begin HRT. All questions answered. Rx for HRT is called in to the pharmacy. Call if any vaginal bleeding occurs upon initiation of HRT, or at any time postmenopausally. Face to face discussion for 25 minutes. Not available 05/11/2014 11:49:26 01/04/2015 [id number] vaginal yeast infection: care instructions Not available 01/04/2015 15:47:25 She is here for a one week history of itching and burning between my legs and my body . She has a significant monilia vaginitis as well as intertriginous monilia. RX Diflucan and also NyStop powder. Ways to prevent recurrences discussed, keep the area dry. Not available 01/04/2015 15:47:25 06/28/2015 [id number] She is here for annual exam. She has been having problems with persitent monilia cutaneous. She was given an rx for Nystop powder but needs a refill. She is going on a cruise to the [facility] soon, is looking forward to this. She appears to be doing well. She is advised to get 1500 mg of calcium daily into her diet and supplements combined. There is a health benefit with adequate vitamin D supplementation to at least 400 units daily, daily aerobic exercise of 30 minutes, and stress reduction. Monthly self breast exam was taught, and stressed, and is advised to call if she discovers any new mass in the breast. Seat belt use for herself and passengers are advised. There are significant health benefits of becoming and remainig fit, with an optimal BMI. There is a potential reduction in chronic discomfort, diminished risks of hypertension, diabetes, and heart disease with the proper weight management. With a recommended BMI there can be improved mobility as she ages. Strategies to reach and maintain her target weight were discussed in detail. Not available 06/28/2015 14:21:30 05/28/2016 [id number] vaginal yeast infection: care instructions [email or web address] Not available 05/28/2016 11:24:45 She is here for a complaint of one week of vaginal pruritus and discomfort and odor between the legs and body. She has monilia vaginitis and cutaneous. She is given a free sample of Gynazole - 1 for vagina luse, wiht written instructions and precautions, and also an rx for NyStop powder. Ways to decrease recurrences discussed. She kaelyn lreturn soon for annual exam. Not available 05/28/2016 13:26:41 06/27/2018 [id number] She is here for annual exam, it has been 3 years since her prior exam. She had a problem with persistent cutaneous monilia, but this is improved now. She has developed urinary stress incontinence, worse in past few years, saw a urologist 2 years ago but no therapy given. She stopped ERT many years ago. Note from 06/2015: She is here for annual exam. She has been having problems with persitent monilia cutaneous. She was given an rx for Nystop powder but needs a refill. She is going on a cruise to the [facility] soon, is looking forward to this. She appears to be doing well. She would like to begin E2 vaginal cream to see if this helps her urinary incontinence and urgency. She is advised to get 1500 mg of calcium daily into her diet and supplements combined. We discussed the benefits of adequate vitamin D supplementation to at least 400 units daily, daily aerobic exercise of 30 minutes, and stress reduction. Monthly self breast exam was taught, and stressed, and is advised to call if she discovers any new mass in the breast. Seat belt use for herself and passengers advised. The significant health benefits of becoming and remainig fit, with an optimal BMI, were also discussed. We discussed the potential reduction in chronic discomfort, the diminished risks of hypertension, diabetes, and heart disease with the proper weight management, and improved mobility as she ages. Strategies to reach and maintain her target weight wer discussed in detail, all questions answered. Not available 06/27/2018 15:05:43 Reason for Referral None Reported. Results Created Date Observation Date Name Description Value Unit Range Abnormal Flag Note LastModifiedBy Organization Detail LastModifiedTime 05/29/1905/28/2016 katherine crow Clue Cells negati ve Not Available In-Office Order Internal Use Only DO Not Attach Compendium DO Not Attach Compendium, Do Not Delete/merge, 05/28/2016 11:05:41 05/29/1905/28/2016 katherine crow Trichomonas negati ve Not Available In-Office Order Internal Use Only DO Not Attach Compendium DO Not Attach Compendium, Do Not Delete/merge, [id number] 05/28/2016 11:05:41 05/29/1905/28/2016 katherine crow Hyphae positi ve Not Available In-Office Order Internal Use Only DO Not Attach Compendium DO Not Attach Compendium, Do Not Delete/merge, [id number] 05/28/2016 11:05:41 05/29/1905/28/2016 wet mount , vagin al atrophic epithelium positi ve Not Available In-Office Order Internal Use Only DO Not Attach Compendium DO Not Attach Compendium, Do Not Delete/merge, [id number] 05/28/2016 11:05:41 06/28/19 16 06/28/2015 fecal occul t blood , stool Occult Blood negati ve Not Available In-Office Order Internal Use Only DO Not Attach Compendium DO Not Attach Compendium, Do Not Delete/merge, [id number] 06/28/2015 13:53:48 01/05/20 15 01/04/2015 wet mount , vagin al Clue Cells negati ve Not Available In-Office Order Internal Use Only DO Not Attach Compendium DO Not Attach Compendium, Do Not Delete/merge, [id number] 01/04/2015 15:41:10 01/05/20 15 01/04/2015 wet mount , vagin al Trichomonas negati ve Not Available In-Office Order Internal Use Only DO Not Attach Compendium DO Not Attach Compendium, Do Not Delete/merge, [id number] 01/04/2015 15:41:10 01/05/20 15 01/04/2015 wet mount , vagin al Hyphae positi ve Not Available In-Office Order Internal Use Only DO Not Attach Compendium DO Not Attach Compendium, Do Not Delete/merge, [id number] 01/04/2015 15:41:10 01/05/20 15 01/04/2015 wet mount , vagin al atrophic epithelium negati ve Not Available In-Office Order Internal Use Only DO Not Attach Compendium DO Not Attach Compendium, Do Not Delete/merge, [id number] 01/04/2015 15:41:10 04/13/19 15 04/13/2014 fecal occul t blood , stool Occult Blood negati ve Not Available In-Office Order Internal Use Only DO Not Attach Compendium DO Not Attach Compendium, Do Not Delete/merge, [id number] 04/13/2014 09:36:17 04/13/19 15 04/13/2014 pap, LB [id number] ThinP rep Pap, Image d: NEGAT CONSTANCE FOR SQUAM OUS INTRA EPITH ELIAL LESIO N AND MALIG REEMA . Fatimah Corona , CT( CP) (Case elect everton brown alivia d 04 20 2014) ADEQU ACY: Satis facto ry. Endoc ervic al/tr ansfo rmati on zone compo nent prese nt. SOURC E: ThinP rep Pap, Vagin al, Image d CLINI SHAD INFOR MATIO N: HPV If Diagn osis of ASCUS . Hyste recto my * Cytop athol ogy servi surinder provi ded by [facility] at the above addre ss. Not Available [facility], Cytopathology Service [address] [place] [address], [id number], 04/23/2014 09:16:25 06/28/19 16 06/28/2015 pap, LB [email or web address] ThinP rep Pap, Image d: NEGAT CONSTANCE FOR SQUAM OUS INTRA EPITH ELIAL LESIO N AND MALIG REEMA . Fatimah Corona , KARELY( CP) (Case elect everton brown alivia d 07 04 2015) ADEQU ACY: Satis facto ry. SOURC E: ThinP rep Pap HPV IF ASCUS , Vagin al, Image d CLINI SHAD INFOR MATIO N: HPV If Diagn osis of ASCUS . LPS neg Not Available [facility], Cytopathology Service [address] [place] [address], [id number], 07/04/2015 10:30:18 06/29/19 19 06/28/2018 pap, LB [id number] ThinP rep Pap, Image d: NEGAT CONSTANCE FOR SQUAM OUS INTRA EPITH ELIAL LESIO N AND MALIG REEMA . Jazzy Ortiz , CT( CP) (Case elect everton brown alivia d 06 30 2018) ADEQU ACY: Satis facto ry . SOURC E: ThinP rep Pap HPV IF ASCUS , Vagin al, Image d CLINI SHAD INFOR MATIO N: HPV If Diagn osis of ASCUS . Glenn naidu, lps neg, z12.4 , z01.4 19 Not Available [facility], Cytopathology Service [address] [place], [address], 06/30/2018 13:45:39 10/01/19 16 10/01/2015 MAMMO , scree melinda, digit al, bilat eral No observ ation record ed. [address] [facility] Orders [address], [place], [address], 10/01/2015 14:36:43 11/01/19 19 10/31/2018 MAMMO , scree melinda, digit al, bilat eral No observ ation record ed. [address] [facility] [address] [place], [address], 11/01/2018 08:11:33 01/18/20 22 01/17/2022 MAMMO , scree melinda, digit al, bilat eral No observ ation record ed. [address] [facility] [address], [place], [address], 01/19/2022 08:56:37 Result Notes None recorded. 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 treatment for Grave's Carmelita Toro MD [address], [place], [address], [place] - [facility], 6 14:19:38 Menopausal syndrome 360815857 Active Carmelita Toro MD [address], [place], [address], [place] - [facility], 6 14:19:38 Candidal vulvovagin itis 47019352 Active Carmelita Toro MD [address], [place], [address], [place] - [facility], 6 14:19:38 Candidiasi s of skin 89776880 Active Carmelita Toro MD [address], [place], [address], [place] - [facility], 6 14:21:30 Graves' disease 981282511 Active 1997 treated with radioactiv e iodine Carmelita Toro MD [address], [place], [address], [place] - [facility], 6 14:19:38 Genital herpes simplex 92942177 Active 2009 no outbreak sincethe primary Carmelita Toro MD [address], [place], [address], [facility] - [place] in [facility], 6 14:19:38 Herpes zoster 7125685 Active 2018 Sherlyn Porras [place] in [facility], 9 14:39:57 Atrophic vaginitis 89578140 Active 2018 Carmelita Toro MD [address], [place], [address], [facility] - [facility] in [facility], 9 14:53:14 Problem Notes None recorded. Procedures Surgical History Date Name Laterality Status Provider Name and Address Organization Details Recorded Time 02/15/18 90 Total Abdominal Hysterectomy completed Carmelita Toro MD [address], [place], [address], [facility] - [facility] in [facility], 04/13/2014 09:45:36 Imaging Results None recorded. Procedure Notes None recorded. Medical Equipment None Reported. Allergies Allergen ID Allergen Name Allergen Category Reaction Reaction Severity Criticality Documentation Date Start Date Code Code System Note Provider Name and Address Organization Details Recorded Time 75586 Product containin g penicilli n (product) medicatio n rash Not available Not available 04/13/2014 76785 8001 SNOMED FátimaPIYUSH Hdz in [facility], 5 09:35:46 86997 amoxicill in medicatio n rash Not available Not available 04/13/2014 723 RxNorm FátimaPIYUSH Hdz in [facility], 5 09:35:46 96863 peanut allergeni c extract food,medi cation Not available Not available Not available 04/13/2014 31862 8 RxNorm Carmelita Toro MD [address] [facility], [address], [place], [address], [facility] - [facility], 5 13:53:20 Medications Name Sig Start Date Stop Date Status Note LastModified by Organization Details LastModified Time Prescript ion - Clarifica tion active Lupron clarific ation Not Available Not Available Not Available quetiapin e 25 mg tablet active Not Available Not Available Not Available cyclobenz aprine 10 mg tablet active Not Available Not Available No t Available prednison e 10 mg tablet active Not Available Not Available Not Available doxycycli ne hyclate 100 mg capsule TAKE 1 CAPSULE BY MOUTH TWICE DAILY FOR 7 DAYS FOR INFECTIO N active Not Available Not Available No t Available Carafate 100 mg/mL oral suspensio n 06/27 completed Not Available Not Available Not Available clindamyc in HCl 300 mg capsule TAKE 1 CAPSULE BY MOUTH EVERY 12 HOURS UNTIL GONE active Not Available Not Available No t Available azithromy kris 250 mg tablet TK 2 TS PO CHINO THEN TK 1 T PO D active Not Available Not Available No t Available ibuprofen 800 mg tablet active Not Available Not Available Not Available fluconazo le 150 mg tablet TAKE 1 TABLET BY MOUTH ONCE AT BEDTIME FOR 1 DAY active Not Available Not Available No t Available citalopra m 10 mg tablet 06/27 completed Not Available Not Available Not Available Nystop 100,000 unit/gram topical powder ERICK AA TOPICALL Y BID 06/27 completed Not Available Not Available Not Available sucralfat e 1 gram tablet 06/27 completed Not Available Not Available Not Available phenazopy ridine 200 mg tablet 06/27 completed Not Available Not Available Not Available prednison e 20 mg tablet TK 2 TS PO QD active Not Available Not Available No t Available clonazepa m 0.5 mg tablet active Not Available Not Available Not Available clonazepa m 1 mg tablet active Not Available Not Available Not Available lithium carbonate ER 300 mg tablet,ex tended release 05/28 completed Not Available Not Available Not Available topiramat e 25 mg tablet active Not Available Not Available Not Available metronida zole 500 mg tablet active Not Available Not Available No t Available oxcarbaze pine 300 mg tablet 05/28 completed Not Available Not Available Not Available acetamino phen 300 mg-codein e 30 mg tablet TAKE 1 TABLET BY MOUTH EVERY 6 HOURS NEEDED FOR PAIN active Not Available Not Available No t Available ciproflox acin 250 mg tablet active Not Available Not Available No t Available ciproflox acin 500 mg tablet 06/27 completed Not Available Not Available Not Available sulfameth oxazole 800 mg-trimet hoprim 160 mg tablet TK 1 T PO BID FOR 5 DAYS active Not Available Not Available No t Available doxycycli ne monohydra te 100 mg tablet TAKE 1 TABLET BY MOUTH TWICE DAILY active Not Available Not Available No t Available tramadol 50 mg tablet active Not Available Not Available Not Available bupropion HCl SR 100 mg tablet,12 hr sustained -release 05/28 completed Not Available Not Available Not Available lamotrigi ne 25 mg tablet TK 1 T PO QD active Not Available Not Available No t Available levothyro xine 75 mcg tablet TAKE 1 TABLET BY MOUTH DAILY active Not Available Not Available No t Available oxycodone -acetamin ophen 5 mg-325 mg tablet TAKE 1 TABLET BY MOUTH EVERY 6 HOURS NEEDED FOR PAIN active Not Available Not Available No t Available citalopra m 20 mg tablet 06/27 completed Not Available Not Available Not Available lorazepam 0.5 mg tablet TK 1 T PO QD PRN active Not Available Not Available No t Available estradiol 1 mg tablet TK 1 T PO D active Not Available Not Available No t Available phenazopy ridine 100 mg tablet TK 1 T PO TID FOR UP TO 3 DAYS PRF PAIN active Not Available Not Available No t Available benzonata te 100 mg capsule active Not Available Not Available Not Available hyoscyami ne sulfate 0.125 mg tablet TAKE 1 TABLET BY MOUTH THREE TIMES DAILY active Not Available Not Available No t Available esomepraz ole magnesium 40 mg capsule,d elayed release TAKE 1 CAPSULE BY MOUTH EVERY MORNING BEFORE BREAKFAS T active Not Available Not Available No t Available promethaz ine 25 mg tablet active Not Available Not Available Not Available bupropion HCl 75 mg tablet TK 1 T PO QAM active Not Available Not Available No t Available lamotrigi ne 5 mg chewable dispersib le tablet 05/28 completed Not Available Not Available Not Available sertralin e 25 mg tablet active Not Available Not Available Not Available omeprazol e 20 mg capsule,d elayed release TK 2 CS PO D active Not Available Not Available No t Available hydroxyzi ne HCl 25 mg tablet TK 1 T PO BID UTD active Not Available Not Available No t Available hydrochlo rothiazid e 25 mg tablet TAKE 1 TABLET BY MOUTH EVERY DAY active Not Available Not Available No t Available estradiol 0.5 mg tablet TK 1 T PO QD active Not Available Not Available No t Available lorazepam 1 mg tablet TAKE 1 TABLET BY MOUTH EVERY DAY NEEDED active Not Available Not Available No t Available azelastin e 137 mcg (0.1 %) nasal spray SPRAY TWICE IN EACH NOSTRIL TWICE DAILY active Not Available Not Available No t Available ibuprofen 600 mg tablet active Not Available Not Available Not Available azithromy kris 200 mg/5 mL oral suspensio n 06/27 completed Not Available Not Available Not Available polyethyl brandee glycol 3350 17 gram/dose oral powder 06/27 completed Not Available Not Available Not Available estradiol 0.01% (0.1 mg/gram) vaginal cream Insert 0.5 g every day by vaginal route. 2018 active Not Available Not Available Not Avai lable levofloxa kris 750 mg tablet active Not Available Not Available No t Available methylpre dnisolone 4 mg tablets in a dose pack FOLLOW PACKAGE DIRECTIO NS active Not Available Not Available No t Available Vitamin D2 1,250 mcg (50,000 unit) capsule TK 1 C PO EVERY WEEK active Not Available Not Available No t Available ondansetr on 4 mg disintegr ating tablet active Not Available Not Available Not Available Calcitrat e 200 mg (950 mg) tablet TK 1 T PO BID active Not Available Not Available No t Available fluticaso ne propionat e 50 mcg/actua tion nasal spray,shahnaz pension SHAKE LQ AND U 1 TO 2 SPRAYS IEN QD active Not Available Not Available No t Available risperido ne 1 mg tablet active Not Available Not Available Not Available doxycycli ne hyclate 100 mg tablet TK 1 T PO BID FOR 10 DAYS active Not Available Not Available No t Available dicyclomi ne 10 mg capsule TAKE 1 CAPSULE BY MOUTH THREE TIMES DAILY active Not Available Not Available No t Available loratadin e 10 mg tablet TAKE 1 TABLET BY MOUTH DAILY active Not Available Not Available No t Available risperido ne 0.5 mg tablet active Not Available Not Available Not Available naproxen 500 mg tablet active Not Available Not Available Not Available cyclobenz aprine 5 mg tablet TAKE 1 TO 2 TABLETS BY MOUTH EVERY NIGHT AT BEDTIME NEEDED active Not Available Not Available No t Available topiramat e 50 mg tablet active Not Available Not Available Not Available nitrofura ntoin monohydra te/macroc rystals 100 mg capsule TK 1 C PO BID FOR 7 DAYS active Not Available Not Available No t Available aripipraz ole 2 mg tablet 06/27 completed Not Available Not Available Not Available quetiapin e 50 mg tablet active Not Available Not Available Not Available peg 3350-elec trolytes 236 gram-22.7 4 gram-6.74 gram-5.86 gram solution active Not Available Not Available Not Available peg 3350 240 gram-elec trolytes 22.72 gram-6.72 g-5.84 g powdr for soln 06/27 completed Not Available Not Available Not Available Vagifem 10 mcg vaginal tablet 06/27 completed Not Available Not Available Not Available Vitamin D3 50 mcg (2,000 unit) capsule TK 1 C PO D active Not Available Not Available No t Available Latuda 20 mg tablet 06/27 completed Not Available Not Available Not Available Gynazole- 1 2 % vaginal cream Insert 1 applicat orful every day by vaginal route for 1 day. 06/27 completed Not Available Not Available Not Available Multi Vitamin active Not Available Not Available Not Available Virtussin AC 10 mg-100 mg/5 mL oral liquid TAKE 5 ML BY MOUTH EVERY 6 TO 8 HOURS NEEDED FOR COUGH active Not Available Not Available No t Available Vraylar 1.5 mg capsule active Not Available Not Available Not Available COVID-19 test specimen collectio n TEST DIRECTED active Not Available Not Available No t Available Vitals Date Recorded Body height Body mass index (BMI) Heart rate Body weight Systolic And Diastolic Provider Name and Address Organization Details Last Updated DateTime 05/11/2014 160.02 cm 38.2 kg/m2 69 /min 41430.23 3446 g 130/79 mm[Hg] Fátima Call [place] - [facility], 05/11/2014 11:02:53 Date Recorded Body height Body weight Body mass index (BMI) Heart rate Systolic And Diastolic Provider Name and Address Organization Details Last Updated DateTime 05/28/2016 160.02 cm 32310.3 g 37.6 kg/m2 71 /min 138/95 mm[Hg] Fátima Cross in [facility], 05/28/2016 10:47:35 Date Recorded Heart rate Body height Body weight Body mass index (BMI) Systolic And Diastolic Provider Name and Address Organization Details Last Updated DateTime 06/28/2015 72 /min 160.02 cm 45912.26 2764 g 38.5 kg/m2 131/79 mm[Hg] Fátima Cross in [facility], 06/28/2015 14:01:51 Date Recorded Heart rate Body weight Body mass index (BMI) Body height Systolic And Diastolic Provider Name and Address Organization Details Last Updated DateTime 06/27/2018 74 /min 83206.84 g 4.8 kg/m2 157.48 cm 149/92 mm[Hg] Sherlyn Peñahaseeb Cross in [facility], 06/27/2018 14:33:08 Date Recorded Body height Body weight Body mass index (BMI) Heart rate Systolic And Diastolic Provider Name and Address Organization Details Last Updated DateTime 01/04/2015 160.02 cm 56082.65 874 g 35.8 kg/m2 78 /min 131/81 mm[Hg] Fátima Cross in [facility], 01/04/2015 15:30:42 Social History Question Answer Notes LastModified by Organizat ion Details LastModified Time Tobacco Smoking Status Never Smoker Not Available [facility] 12/19/2019 03:19:41 What Is Your Level Of Caffeine Consumption? None [id number] Information not available 12/19/2019 What Type Of Diet Are You Following? REGULAR Red Meats, Fish And Chicken Mainly [id number] Information not available 12/19/2019 Which Illicit Or Recreational Drugs Have You Used? No [id number] Information not available 12/19/2019 Do You Reside In Or Have You Traveled To An Area Where Ebola Virus Transmission Is Active? No [id number] Information not available 12/19/2019 Education 4 Year College Information not available 04/13/2014 How Many Days In The Past Year Have You Had A Heavy Drinking Consumption (4+ Female, 5+ Male)? 0 Information not available 05/28/2016 High Number Of Sexual Partners No Information not available 05/28/2016 To Which Gender Do You Self-identify? Female Information not available 05/28/2016 Marital Status [email or web address] Informatio n not available 04/13/2014 What Was The Date Of Your Most Recent Tobacco Screening? 06/27/2018 [id number] Information not available 12/19/2019 Are You Sexually Active? Yes [id number] Information not available 12/19/2019 How Much Tobacco Do You Smoke? No [id number] Information not available 12/19/2019 General Stress Level High Information not available 05/28/2016 How Many Years Have You Smoked Tobacco? 0 [id number] Information not available 12/19/2019 Have You Recently (within The Last 12 Weeks, Or During A Current ) Traveled To Or Lived In A Zika-affected Area? No Information not available 05/28/2016 Sex: Unknown Functional Status Question Answer Note LastModified by Organizat ion Details LastModified Time What is your level of alcohol consumption? None [id number] Information not available 12/19/2019 What is your occupation? [employer] Information not available 06/27/2018 What is your exercise level? Occasional [id number] Information not available 12/19/2019 Mental Status None recorded. Family History Relationship Description Onset Age of this Age Resolved Age Notes LastModified by Organization Details LastModified Time Maternal Aunt Malignant neoplasm of breast 35 Not available 06/15 14:06:49 Mother Problem rafia sons Not available 06/28/2015 14:06:49 Father Problem unknow n Not available 06/28/2015 14:06:49 Medical History Condition Response Anesthesia complications N High Blood Pressure Y Candidate for MyRisk panel N Thyroid Problems Y Kidney or Bladder Problems N Depression N GI Problems N Lung Disease N Defects or Inherited Disease N Anemia N History of Ovarian Cancer N History of Breast Cancer N SHAZIA exposure N BRCA testing in past N Osteopenia Y Psychiatric Illness N Anxiety Disorder Y Diabetes N Arthritis Y Headaches or Migraines N Infertility N Asthma N History of Cancer N Endometriosis Y Hepatitis N Heart Disease N Hypertension Y Osteoporosis N Gynecological History Statement/Question Response If Post Menopausal, Age at Menopause 44 Age at Menarche 12 Age at First Child 16 Hormone Replacement Therapy N Obstetrics History GPAL:G 6 P 4 0 2 4 Type Value Full Term 4 Spontaneous 2 Living 4 Total 6 Immunizations Vaccine Type Date Status Note Provider Nam e and Address Organization Details Recorded Time Pneumococcal Conjugate, unspecified formulation 4 completed Fátima Call [place] in [facility], 06/28/2015 14:01:51 Influenza, split virus, quadrivalent, preservative 9 completed Sherlyn Porras [place] in [facility], 06/27/2018 14:39:27 Past Encounters Encounter ID Performer Location Encounter Start Date Encounter Closed Date Diagnosis/Indication Diagnosis SNOMED-CT Code Diagnosis ICD10 Code Diagnosis IMO Codes Diagnosis Note [id number] MD CARMELITA Antunez MD [address] [place] [address],[address] [place] [address] 04/13/2014 09:12:28 04/13/2014 14:20:07 Specialized medical examination 29153221 Screening for malignant neoplasm of rectum 295118602 Screening mammography 80991448 Menopausal syndrome 636627356 [id number] MD CARMELITA Antunez MD [address] [facility],[address] [place] [address] 05/11/2014 10:43:28 05/11/2014 11:51:43 Genital herpes simplex 36299493 Menopausal syndrome 944351353 [id number] MD CARMELITA Antunez MD [address] [facility],[address] [place] [address] 01/04/2015 15:20:04 01/04/2015 16:09:35 Candidal vulvovaginitis 40719454 B37.3 Candidiasis of skin 4988 3006 B37.2 [id number] MD CARMELITA Antunez MD [address] [facility],[address] [place] [address] 06/28/2015 13:48:59 06/28/2015 15:41:25 Specialized medical examination 56900208 Z01.419 Screening for malignant neoplasm of rectum 125366968 Z12.12 Screening mammography 24 984929 Z12.31 Candidiasis of skin 4988 3006 B37.2 [id number] MD CARMELITA Antunez MD [address] [place] [address] 05/28/2016 10:40:20 05/28/2016 14:29:43 Candidal vulvovaginitis 29132873 B37.3 Candidiasis of skin 4988 3006 B37.2 [id number] MD CARMELITA Antunez MD [address] [facility],[address] [place] [address] 06/27/2018 14:22:04 06/27/2018 15:40:15 Specialized medical examination 07974243 Z01.419 Screening for malignant neoplasm of rectum 576634490 Z12.12 Screening mammography 24 289720 Z12.31 Atrophic vaginitis 90639 000 N95.2 Health Concerns Section Related Observation LastModified by Organization Detai ls LastModified Time None Recorded Concern Status LastModified by Organization Details LastModified Time None Recorded Advance Directives Directive None Recorded Payers Insurance Date Sequence Insurance Name Policy Number Policy Becker Covered Member ID Becker Member ID Guarantor Name 03/18/2021 1 [place]UE CARD [id number] Hung Espinosa [id number] Emily Espinosa 03/18/2021 2 MEDICARE B-[place]: [facility] [employer] Emily Espinosa [id number] Emily Espinosa Notes Date Note Type Note Provider Name and Address Organization Details Recorded Time 05/11/2014 text/html ROS as noted in the HPI Carmelita Toro MD [address], [place], [address], [place] - [facility], 05/11/2014 11:50:19 01/04/2015 text/html ROS as noted in the HPI Carmelita Toro MD [address], [place], [address], [facility] - [facility], 01/04/2015 15:49:46 06/28/2015 text/html ROS as noted in the HPI Carmelita Toro MD [address], [place], [address], [facility] - [facility], 06/28/2015 14:22:10 05/28/2016 text/html She is here for a complaint of one week of vaginal pruritus and discomfort and odor between the legs and body. Carmelita Toro MD [address] [facility],[address], [place], [address], [facility] - [facility], 05/28/2016 13:27:06 06/27/2018 text/html She is here for annual exam, it has been 3 years since her prior exam. She had a problem with persistent cutaneous monilia, but this is improved now. She has developed urinary stress incontinence, worse in past few years, saw a urologist 2 years ago but no therapy given. She stopped ERT many years ago. Note from 06/2015: She is here for annual exam. She has been having problems with persitent monilia cutaneous. She was given an rx for Nystop powder but needs a refill. She is going on a cruise to the [facility] soon, is looking forward to this. Carmelita Toro MD [address] [facility],[address], [place], [address], [facility] - [facility], 06/27/2018 15:06:17 OBGyn Episode No OBEpisode recorded.
== END 2024-12-05 09:19 | disposition left against medical advice (07) ==
PROVIDERS: Emergency Provider Emergency Medicine; PCP Family Medicine
DX: M79.604 Pain in right leg (principal); Z53.21 Procedure and treatment not carried out due to patient leaving prior to being seen by health care provider